=== PATIENT | female | born 1960 | race Caucasian/White ===

== ENCOUNTER 2017-02-16 10:36 | Outpatient (CLI) | payer BC ==
--- NOTE | 2017-02-16 14:05 | MRI ---
MRI CERVICAL SPINE WITHOUT CONTRAST: Date: 02/16/17 Multiplanar, multisequential imaging of cervical spine obtained. HISTORY: Cervical radiculopathy. Pain and numbness left arm. COMPARISON: MRI cervical spine dated 01/09/14. FINDINGS: The cervical vertebra maintain height and alignment. Degenerative changes are prominent at C5-6 and C6-7. Loss of disc space at both these levels with anterior osteophytes. Mild spondylosis at C3-4 and C4-5. These changes minimally efface the anterior subarachnoid space at these levels. No cord impingement. No cervical canal stenosis or foraminal stenosis at these levels . At C5-6, prominent disc bulge and spondylosis is present impinging on the cord producing indentation to anterior cord. Similar findings were present in 2013 without significant interval change. There is bilateral foraminal narrowing due to facet and uncinate hypertrophy. At C6-7, posterior disc bulge and spondylosis also impinges on the anterior cord. Hypertrophic shane es in the posterior canal at this level abut the posterior aspect of the cord. Mild bilateral forami nal encroachment, especially on the left, due to uncinate hypertrophy. Findings are similar to 2013. At C7-T1, no significant disc bulge or spondylosis. Cord signal is preserved with no evidence of myelomalacia. IMPRESSION: Moderate cervical canal stenosis at C5-6 and at C6-7. Spondylitic changes impinge on the anterior co rd at both these levels and there is foraminal encroachment at both these levels as described above. POS: [facility]
== END 2017-02-16 10:37 | disposition home or self-care (01) ==
LOC: TBSIIMAG 10:36
PROVIDERS: ATTEND Neurological Surgery
DX: M54.12 Radiculopathy, cervical region (principal); M48.02 Spinal stenosis, cervical region
CPT/HCPCS: 72141

== ENCOUNTER 2017-02-22 05:50 | Day surgery (SDC) | payer BC ==
[2017-02-21 12:19] VITALS: BMI 26.6
[2017-02-22] MEDS ORDERED: CEFAZOLIN/Water 2 GM/20 ML SYRINGE ONE (06:20)
[2017-02-22] MEDS ORDERED: Sodium Chloride 0.9% 10 ML ONE (06:24)
[2017-02-22 06:55] LABS: Hematocrit 46.8 % (36.0-47.0); Mean Platelet Volume 7.1 fL (7.4-10.4); Red Blood Cell (RBC) Count 5.08 mill/uL (4.20-5.40); White Blood Cell (WBC) Count 5.6 thou/uL (4.8-10.8)
[2017-02-22] MEDS ORDERED: Midazolam HCl 2 mg/2 ml Vial ONE (07:04)
[2017-02-22] MEDS ORDERED: Scopolamine 1.5 mg/72 hour Patch ONE (07:04)
[2017-02-22 07:14] LABS: Anion Gap 14 mmol/L (10-20); BUN (Urea Nitrogen) 17 mg/dL (9.8-20.1); Calc. Creatinine Clearance 100 mL/min (70-130); Calcium 9.8 mg/dL (7.8-10.44); Carbon Dioxide 29 mmol/L (22-29); Chloride 104 mmol/L (98-107); Estimated GFR-MDRD 75
[2017-02-22] MEDS ORDERED: Fentanyl 250 MCG/5 ML VIAL ONE (07:14)
[2017-02-22] MEDS ORDERED: Dexamethasone 20 MG/5 ML VIAL ONE (07:28)
[2017-02-22] MEDS ORDERED: Lidocaine 2% PF 10 ML AMP (For Epidural Use) ONE (07:28)
[2017-02-22] MEDS ORDERED: Propofol 200 MG/20 ML VIAL ONE (07:28)
[2017-02-22] MEDS ORDERED: Ondansetron HCl/PF 4 MG/2 ML Vial ONE (07:28)
[2017-02-22] MEDS ORDERED: Glycopyrrolate 0.2 MG/ML 5 ML SYRINGE ONE (07:28)
--- NOTE | 2017-02-22 08:40 | OP ---
DATE OF PROCEDURE: 02/22/2017 SURGEON: Billy Antonio M.D. VOTING MACHINE REPAIRER: EMANUEL Blanchard PROCEDURE: Anterior cervical discectomy C5-6 and C6-7, interbody arthrodesis, intravertebral biomec hanical device, local morselized autograft, demineralized bone matrix, anterior titanium instrumenta tion C5-C7. PROCEDURE IN DETAIL: The patient was brought into the operating room, intubated. She was positione d supine in modest extension on a gel-filled donut. Incision was made in the right precervical area and dissecting medial to the sternocleidomastoid muscle, identified the anterior cervical spine and our level was confirmed by x-ray. We placed distraction between C5 and C7, debrided the intraverte bral discs and using the operating microscope and microdissection techniques, completely decompresse d the discs down to the level of the dura at both affected levels. The bony endplates were then dec orticated for the purpose of arthrodesis and appropriately sized intravertebral biomechanical PEEK d evice was brought into the field, filled with demineralized bone matrix and local morselized autogra ft, and tapped into place securely at C5-6 and C6-7. Next, an anterior plate was brought in the fie ld and secured to C5, C6, and C7 using two 14 mm screws at each level. The wound was then extensive ly irrigated, immaculate hemostasis was secured, and the wound was closed in anatomic layers.
[2017-02-22] MEDS ORDERED: Ketorolac Tromethamine 30 MG/ML VIAL ONE (08:59)
[2017-02-22] MEDS ORDERED: Acetaminophen/Codeine 30-300mg Tablet ONE (12:08)
--- NOTE | 2017-02-24 15:57 | EKG ---
Test Reason : PREOP Blood Pressure : / mmHG Vent. Rate : 070 BPM Atrial Rate : 070 BPM P-R Int : 170 ms QRS Dur : 088 ms QT Int : 412 ms P-R-T Axes : 047 -01 036 degrees QTc Int : 444 ms Normal sinus rhythm Cannot rule out Anterior infarct , age undetermined Abnormal ECG No previous ECGs available Confirmed by DR. Tania FOLEY ([id number]) on 02/24/2017 3:56:30 PM Referred By: HENOK Confirmed By:DR. Tania FOLEY
== END 2017-02-22 13:00 | disposition home or self-care (01) ==
LOC: SDC 05:50
PROVIDERS: ATTEND Neurological Surgery
PROC: 0RG20A0 Fusion of 2 or more Cervical Vertebral Joints with Interbody Fusion Device, Anterior Approach, Anterior Column, Open Approach (ICD-10-PCS; principal; 2017-02-22)
DX: M50.323 Other cervical disc degeneration at C6-C7 level (principal); Z88.2 Allergy status to sulfonamides; Z91.018 Allergy to other foods; Z79.82 Long term (current) use of aspirin; Z98.890 Other specified postprocedural states
CPT/HCPCS: 76001; 80048; 85027; 93005; 93010; 96374; A4216; C1713; J1100; J1885; J2001; J2250; J2405; J2704; J3010; J3490

== ENCOUNTER 2017-03-09 15:19 | Outpatient (CLI) | payer BC ==
--- NOTE | 2017-03-09 15:44 | RAD ---
3 VIEWS CERVICAL SPINE: Date: 03/09/17 HISTORY: Follow-up exam. Degenerative disc disease. Cervical fusion. COMPARISON: None. FINDINGS: Three views of the cervical spine demonstrate anterior fusion plate with transvertebral screw at C5, C6, and C7. No perihardware lucency. Disc prosthesis at C5-C6 and C6-C7. Vertebral body height is miller ntained. No fractures. No malalignment. Predental space is normal. In the AP projection, there are mild degenerative changes of facets. On the open-mouth projection, lateral masses of C1 and C2 articulate appropriately. IMPRESSION: Uncomplicated cervical fusion hardware. POS: [facility]
== END 2017-03-09 15:20 | disposition home or self-care (01) ==
LOC: TBSIIMAG 15:19
PROVIDERS: ATTEND Physician Assistant
DX: M50.30 Other cervical disc degeneration, unspecified cervical region (principal); Z98.1 Arthrodesis status
CPT/HCPCS: 72040

== ENCOUNTER 2017-05-02 13:51 | Outpatient (CLI) | payer BC ==
--- NOTE | 2017-05-02 14:43 | RAD ---
CERVICAL SPINE 4 VIEWS: Date: 05/02/17 HISTORY: Neck surgery. Follow-up. COMPARISON: 03/09/17. FINDINGS: Anterior fixation plate remains in place at the C5-6-7 levels. No perihardware lucency is apparent. M etallic markers associated with interbody fusion material within the confines of the disc spaces at t he postoperative levels. Vertebral body height and alignment are maintained. Cervicothoracic junction is intact. IMPRESSION: Stable postoperative appearance of the cervical spine. POS: [facility]
== END 2017-05-02 13:52 | disposition home or self-care (01) ==
LOC: TBSIIMAG 13:51
PROVIDERS: ATTEND Neurological Surgery
DX: M54.12 Radiculopathy, cervical region (principal); Z98.1 Arthrodesis status
CPT/HCPCS: 72040

== ENCOUNTER 2018-03-13 08:34 | Outpatient (CLI) | payer BC | END 2018-03-13 08:35 | disposition home or self-care (01) | LOC: BICMAMMO 08:34 | PROVIDERS: ATTEND Internal Medicine | DX: Z12.31 Encounter for screening mammogram for malignant neoplasm of breast (principal) | CPT/HCPCS: 77063; 77067 ==

== ENCOUNTER 2018-12-31 13:17 | Outpatient (CLI) | payer BC ==
--- NOTE | 2018-12-31 13:34 | RAD ---
EXAM: Chest 2 views: HISTORY: Lung nodules COMPARISON: 02/01/2017 FINDINGS: There is a normal-sized cardiomediastinal silhouette. There is no evidence of consolidation, mass, or pleural effusion. The bones are unremarkable. IMPRESSION: No evidence of acute cardiopulmonary disease
== END 2018-12-31 13:18 | disposition home or self-care (01) ==
LOC: BICRAD 13:17
PROVIDERS: ATTEND Internal Medicine
DX: R91.8 Other nonspecific abnormal finding of lung field (principal)
CPT/HCPCS: 71046

== ENCOUNTER 2019-03-15 08:24 | Outpatient (CLI) | payer BC ==
--- NOTE | 2019-03-15 09:14 | MMO ---
Bilateral MAMMO Bilat Screen [facility]. CLINICAL HISTORY: Patient is 58 years old and is seen for screening. The patient has no family history of breast cancer. The patient has no personal history of cancer. The patient has a history of bilateral Implants at age 43 and right Excisional Biopsy at age 33 - benign. VIEWS: The views performed were: bilateral craniocaudal; bilateral mediolateral oblique; and bilateral Implant displaced with tomosynthesis. FILMS COMPARED: The present examination has been compared to prior imaging studies performed at [facility] on 06/11/2014, 01/20/2016, 02/01/2017 and 03/13/2018. This study has been interpreted with the assistance of computer-aided detection. MAMMOGRAM FINDINGS: There are scattered fibroglandular densities. There is a stable mass seen in the middle inner region of the left breast. There are no suspicious masses, suspicious calcifications, or new areas of architectural distortion. IMPRESSION: THERE IS NO MAMMOGRAPHIC EVIDENCE OF MALIGNANCY. A ROUTINE FOLLOW-UP MAMMOGRAM IN 1 YEAR IS RECOMMENDED. THE RESULTS OF THIS EXAM WERE SENT TO THE PATIENT. ACR BI-RADS Category 2 - Benign finding MAMMOGRAPHY NOTE: 1. A negative mammogram report should not delay a biopsy if a dominant of clinically suspicious mass is present. 2. Approximately 10% to 15% of breast cancers are not detected by mammography. 3. Adenosis and dense breasts may obscure an underlying neoplasm. Reported by: VIDYA MANUEL MD Electonically Signed: [id number]
== END 2019-03-15 08:25 | disposition home or self-care (01) ==
LOC: BICMAMMO 08:24
PROVIDERS: ATTEND Internal Medicine
DX: Z12.31 Encounter for screening mammogram for malignant neoplasm of breast (principal)
CPT/HCPCS: 77063; 77067

== ENCOUNTER 2020-01-17 09:10 | Outpatient (CLI) | payer BC ==
--- NOTE | 2020-01-17 10:36 | MRI ---
MR CERVICAL SPINE WITHOUT CONTRAST INDICATION: Chronic neck pain TECHNIQUE: Multiplanar multisequence MR images were obtained of the cervical spine without contrast. COMPARISON: Prior MR cervical spine dated February 16, 2017. FINDINGS: Posterior fossa: Within normal limits. Bone marrow signal intensity: Since the comparison examination there is been interval performance of an ACDF spanning C5 C7. There is improvement in the central canal narrowing previously seen at C5-6 and C6-7. Spinal alignment: Normal. Craniocervical junction: Normal appearing. Prevertebral and perivertebral soft tissues: Visualized soft tissues appear within normal limits. Vertebral levels: C2-C3: No appreciable central canal or neuroforaminal narrowing. C3-4: No appreciable central canal or neuroforaminal narrowing. C4-5: There is a small broad-based bulge that is stable in size prior exam. No appreciable central c anal or neural foraminal narrowing is evident. C5-C6: There is improvement in the central canal narrowing since the prior ACDF. There is improvement in the bilateral neural foraminal narrowing. No residual neural foraminal narrowing is grossly evident. C6-C7:, There is a residual broad-based bulge at C6-7 inducing moderate left and mild right neural fo raminal narrowing which is stable. There is improvement in the central canal narrowing seen at this level. C7-T1: No appreciable central canal or neuroforaminal narrowing. IMPRESSION: 1. Improvement in the central canal narrowing seen from the prior examination at C5-6 and C6-7 follow ing an interval of C5-C7 ACDF. There is a residual moderate left and mild right neural foraminal narrowing at C6-7 due to residual broad-based bulge. 2. Mild cervical spondylosis.
--- NOTE | 2020-01-17 10:48 | MRI ---
MRI BRAIN WITHOUT CONTRAST: HISTORY: Headaches and chronic knee pain FINDINGS: No restricted diffusion is seen. The ventricular size is appropriate and the basilar cisterns are pat ent. A nonspecific small focus of T2 prolongation is seen in the left subcortical parietal lobe region. No evidence of acute infarct, hemorrhage, midline shift or abnormal extra-axial fluid collections is seen. The visualized paranasal sinuses and mastoid air cells are well-aerated. IMPRESSION: No evidence of acute intracranial process.
== END 2020-01-17 09:11 | disposition home or self-care (01) ==
LOC: TBSIIMAG 09:10
PROVIDERS: ATTEND Neurological Surgery
DX: M50.30 Other cervical disc degeneration, unspecified cervical region (principal); R51 Headache; M47.812 Spondylosis without myelopathy or radiculopathy, cervical region; M48.02 Spinal stenosis, cervical region; M50.823 Other cervical disc disorders at C6-C7 level; Z98.1 Arthrodesis status
CPT/HCPCS: 70551; 72141

== ENCOUNTER 2020-09-15 10:19 | Outpatient (CLI) | payer BC | END 2020-09-15 10:20 | disposition home or self-care (01) | LOC: BICMAMMO 10:19 | PROVIDERS: ATTEND Internal Medicine | DX: Z12.31 Encounter for screening mammogram for malignant neoplasm of breast (principal); Z80.3 Family history of malignant neoplasm of breast; Z91.89 Other specified personal risk factors, not elsewhere classified; Z98.82 Breast implant status | CPT/HCPCS: 77063; 77067 ==

== ENCOUNTER 2022-07-06 09:56 | Outpatient (CLI) | payer BC | END 2022-07-06 09:57 | disposition home or self-care (01) | LOC: BICRAD 09:56 | PROVIDERS: ATTEND Internal Medicine | DX: R05.9 Cough, unspecified (principal); Z86.16 Personal history of COVID-19 | CPT/HCPCS: 71046 ==